=== PATIENT | female | born 1965 | race Caucasian/White ===

== ENCOUNTER 2022-08-13 06:28 | Observation (INO) | payer OTHER ==
[2022-08-13 06:41] VITALS: BMI 27.8
[2022-08-13] MEDS ORDERED: SODIUM CHLORIDE 0.9% 1000 ML INFUS.BAG IV ONE (07:48)
[2022-08-13] MEDS ORDERED: MECLIZINE HCL 25 MG TABLET (FP) PO ONE (07:48)
[2022-08-13] MEDS ORDERED: ONDANSETRON 4 MG/2 ML VIAL IVPUSH ONE (07:48)
[2022-08-13] MEDS ORDERED: ONDANSETRON 4 MG/2 ML VIAL ONE (08:01)
[2022-08-13] MEDS ORDERED: MECLIZINE HCL 25 MG TABLET (FP) ONE (08:01)
[2022-08-13 08:25] LABS: BLOOD UREA NITROGEN 17.2 mg/dL (7-18); CALCIUM 9.2 mg/dL (8.5-10.1); MAGNESIUM 1.7 mg/dL (1.8-2.4)
[2022-08-13 08:28] LABS: CREATININE 0.9 mg/dL (0.55-1.3)
[2022-08-13 08:29] LABS: BASO % 0.5 % (0-2.0); EOS % 0.8 % (0-4.5); HEMATOCRIT 39.5 % (32.4-45.2); HEMOGLOBIN 13.7 GM/dL (10.7-15.3); LYMPH % 27.5 % (8-40); MCH 29.3 pg (25.7-33.7); MCHC 34.6 g/dl (32.0-36.0); MEAN CELL VOLUME 84.6 fl (80-96); MONO % 6.5 % (3.8-10.2); NEUT % 64.7 % (42.8-82.8); PLATELET COUNT 236 10^3/uL (134-434); RBC 4.67 M/mm3 (3.60-5.2); RDW 14.1 % (11.6-15.6); WHITE BLOOD COUNT 13.6 K/mm3 (4.0-10.0)
[2022-08-13 08:30] LABS: BILIRUBIN,TOTAL 0.4 mg/dL (0.2-1)
[2022-08-13 09:02] LABS: PH,URINE 7.5 (5.0-8.0); URINE APPEARANCE CLEAR; URINE BILIRUBIN NEGATIVE (NEGATIVE); URINE COLOR YELLOW; URINE GLUCOSE (UA) NEGATIVE (NEGATIVE); URINE KETONE NEGATIVE (NEGATIVE); URINE LEUK ESTERASE NEGATIVE (NEGATIVE); URINE NITRITE NEGATIVE (NEGATIVE); URINE PROTEIN TRACE (NEGATIVE); URINE UROBILINOGEN 0.2 mg/dL (0.2-1.0)
[2022-08-13] MEDS ORDERED: ONDANSETRON 4 MG/2 ML VIAL IVPUSH PRN (13:12)
[2022-08-13] MEDS ORDERED: MECLIZINE HCL 25 MG TABLET (FP) PO PRN (13:16)
[2022-08-13] MEDS ORDERED: MAGNESIUM SULF 50% (8.12 MEQ/2 ML-1 GM VIAL) IVPB ONE (13:41)
[2022-08-13] MEDS: SODIUM CHLORIDE 1,000 ML IV SCH (13:50)
[2022-08-13] MEDS ORDERED: MAGNESIUM 1GM/D5W - 1 GM/100 ML IVPB IVPB ONE (13:52)
[2022-08-14] MEDS: SODIUM CHLORIDE 1,000 ML IV SCH ×2 (02:04→22:17)
[2022-08-14 07:04] LABS: BASO % 0.8 % (0-2.0); EOS % 3.1 % (0-4.5); HEMATOCRIT 33.9 % (32.4-45.2); HEMOGLOBIN 11.8 GM/dL (10.7-15.3); LYMPH % 51.7 % (8-40); MCH 29.6 pg (25.7-33.7); MCHC 34.9 g/dl (32.0-36.0); MEAN CELL VOLUME 84.7 fl (80-96); MEAN PLT VOLUME 10.2 fl (7.5-11.1); MONO % 6.6 % (3.8-10.2); NEUT % 37.8 % (42.8-82.8); PLATELET COUNT 199 10^3/uL (134-434); RBC 4.01 M/mm3 (3.60-5.2); RDW 14.2 % (11.6-15.6); WHITE BLOOD COUNT 6.3 K/mm3 (4.0-10.0)
[2022-08-14 07:12] LABS: ALBUMIN 3.3 g/dl (3.4-5.0); CALCIUM 8.4 mg/dL (8.5-10.1); MAGNESIUM 1.7 mg/dL (1.8-2.4)
[2022-08-14 07:15] LABS: CREATININE 0.9 mg/dL (0.55-1.3)
[2022-08-14 07:16] LABS: PHOSPHOROUS 2.9 mg/dL (2.5-4.9)
[2022-08-14 07:17] LABS: BILIRUBIN,TOTAL 0.2 mg/dL (0.2-1); TOT PROT 6.6 g/dl (6.4-8.2)
[2022-08-14] MEDS ORDERED: MAGNESIUM SULF 50% (8.12 MEQ/2 ML-1 GM VIAL) IVPB ONE ×2 (08:30→10:19)
[2022-08-14] MEDS ORDERED: ATENOLOL 50 MG TABLET (FP) PO SCH (10:00)
[2022-08-14] MEDS ORDERED: CHLORTHALIDONE 25 MG TABLET PO SCH (10:00)
[2022-08-14] MEDS: ENOXAPARIN NA (PORCINE) 40 MG/0.4 ML DISP.SYRIN SQ SCH (10:02)
[2022-08-14] MEDS: ATENOLOL 50 MG TABLET (FP) PO SCH (11:48)
[2022-08-14] MEDS: D5-1/2NS+20 MEQ KCL - 20 MEQ/1,000 ML INFUS.BAG IV SCH ×2 (11:49→22:17)
[2022-08-15 08:16] LABS: CALCIUM 9.1 mg/dL (8.5-10.1)
[2022-08-15 08:17] LABS: BLOOD UREA NITROGEN 9.4 mg/dL (7-18); MAGNESIUM 1.6 mg/dL (1.8-2.4)
[2022-08-15 08:20] LABS: CREATININE 0.8 mg/dL (0.55-1.3)
[2022-08-15] MEDS ORDERED: MAGNESIUM 2GM/50ML STERILE WATER IVPB IVPB ONE (10:15)
[2022-08-15 11:07] VITALS: RESP 18; TEMP 97.6
[2022-08-15] MEDS: ATENOLOL 50 MG TABLET (FP) PO SCH (11:10)
[2022-08-15] MEDS: ENOXAPARIN NA (PORCINE) 40 MG/0.4 ML DISP.SYRIN SQ SCH (11:10)
[2022-08-15 14:55] VITALS: BP 136/84; PULSE 58
== END 2022-08-15 18:52 | disposition home or self-care (01) ==
LOC: JER 06:28 → JERBED 12:28 → J4S 08-14 00:59
PROVIDERS: ADMIT Internal Medicine; ATTEND Internal Medicine
PROC: 3E0337Z Introduction of Electrolytic and Water Balance Substance into Peripheral Vein, Percutaneous Approach (ICD-10-PCS; principal; 2022-08-13)
DX: I95.1 Orthostatic hypotension (principal); R42 Dizziness and giddiness; E86.0 Dehydration; R53.1 Weakness; Z29.8 Encounter for other specified prophylactic measures
CPT/HCPCS: 0241U-QW; 36415; 70450-TC; 70551-TC; 80048; 80053; 81003; 82607; 82746; 82962; 83690; 83735; 84100; 84443; 84484; 85025; 87086; 93005; 93010; 96361; 96372; 96374; 96375; 96376; 99285-25; G0378